=== PATIENT | male | born 1955 | race Caucasian/White ===

== ENCOUNTER 2018-03-15 08:12 | Emergency (ER) | payer OTHER ==
[2018-03-15 08:25] VITALS: BP 152/88
--- NOTE | 2018-03-15 10:23 | ED Physician Documentation ---
PD HPI LOWER EXT INJURY - Stated complaint Stated Complaint: LT LEG INJURY - Chief complaint Chief Complaint: Ext Problem - History obtained from History obtained from: Patient - History of Present Illness PD HPI LOW EXT INJURY LOCATION: Left, Upper leg Type of injury: Fall, Twist Where injury occurred: Park Timing - onset: Yesterday Timing - duration: Days (1) Timing - details: Abrupt onset, Still present Improved by: Rest, Immobilization Worsened by: Moving, Palpating Associated symptoms: No: Weakness, Numbness, Tingling, Swelling, Discolored Similar symptoms before: Diagnosis (pull of the hamstrings) Recently seen: Not recently seen - Additional information Additional information: 62-year-old male has a prior history of pulling both of his hamstrings playing baseball has developed a pain in the posterior aspect of his thigh on the left side after trying to adjust his boat and falling over the boats trailer tongue. He has severe pain in this area if he tries to straighten his leg he is able to be comfortable if he has his leg in a flexed position and if he is standing with the leg straight. If he tries to lift the leg he has significant pain over the hamstring. Review of Systems Constitutional: denies: Fever Eyes: denies: Decreased vision Ears: denies: Ear pain Nose: denies: Congestion Respiratory: denies: Cough GI: denies: Vomiting Musculoskeletal: reports: Extremity pain. denies: Neck pain, Back pain Neurologic: denies: Generalized weakness, Focal weakness, Numbness PD PAST MEDICAL HISTORY - Present Medications Home Medications: Ambulatory Orders Medication Instructions Recorded Confirmed HYDROcod/ACETAM 5/325 [[place] 5/325] 1 - 2 ea PO Q6H PRN #15 tablet 03/15/18 - Allergies Allergies/Adverse Reactions: Allergies Allergy/AdvReac Type Severity Reaction Status Date / Time Penicillins Allergy Unknown Verified 03/15/18 08:25 PD ED PE NORMAL - Vitals Vital signs reviewed: Yes (hypertensive ) - General General: Alert and oriented X 3, No acute distress, Well developed/nourished - HEENT HEENT: Atraumatic, PERRL - Neck Neck: Supple, no meningeal sign - Respiratory Respiratory: No respiratory distress - Derm Derm: Normal color, Warm and dry, No rash - Extremities Extremities: No deformity, No edema, Other (There is mid posterior thigh pain to palpation. There is pain to the ishial tuberosisty and pain is worse with extension and with flexion if standing. 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, No motor deficit, No sensory deficit, Normal speech Eye Opening: Spontaneous Motor: Obeys Commands Verbal: Oriented GCS Score: 15 - Psych Psych: Normal mood, Normal affect Results - Vitals Vitals: Vital Signs - 24 hr 03/15/18 08:22 Temperature 36.6 C Heart Rate 71 Respiratory 18 Rate Blood Pressure 152/88 H O2 Saturation 94 Oxygen O2 Source Room air - Rads (name of study) pelvis Radiology: Prelim report reviewed (Impression: Normal examination no demonstrated cause for the patient's symptoms.), EMP read indepedently, See rad report PD MEDICAL DECISION MAKING - ED course Complexity details: reviewed results, re-evaluated patient, considered differential, d/w patient ED course: 62-year-old male with a pull of his hamstrings on the left side does not have evidence of avulsion of bone from the ishial tuberosity. This appears most consistent with a pull of the hamstrings. - Sepsis Event Vital Signs: Vital Signs - 24 hr 03/15/18 08:22 Temperature 36.6 C Heart Rate 71 Respiratory 18 Rate Blood Pressure 152/88 H O2 Saturation 94 Oxygen O2 Source Room air Departure - Departure Disposition: 01 Home, Self Care Clinical Impression: Hamstring tear Condition: Stable Instructions: Hamstring Stretch Follow-Up: Russ Moss MD [Primary Care Provider] - Prescriptions: HYDROcod/ACETAM 5/325 [[place] 5/325] 1 - 2 ea PO Q6H PRN #15 tablet PRN Reason: Pain
[2018-03-15] MEDS ORDERED: DEXAMETHASONE 10 MG/ML VIAL PO STA (10:28)
--- NOTE | 2018-03-15 10:46 | XRAY Report ---
Procedure Date: 03/15/2018 Accession Number: [id number] / [id number] Procedure: XR - Pelvis 1 View CPT Code: FULL RESULT: EXAM: PELVIS RADIOGRAPHY, ONE VIEW EXAM DATE: 03/15/2018 10:37 AM. CLINICAL HISTORY: Pull of hamstring pain over the ischial tuberosity in a 62-year-old male. Posterior left hip pain. COMPARISON: None. TECHNIQUE: Single AP view of the pelvis and both hips performed. FINDINGS: Bones: Normal. No fracture or bone lesion. Joints: The visualized hip, pubis symphysis, and sacroiliac joints are preserved. No subluxation. Soft Tissues: Normal. No soft tissue swelling. IMPRESSION: Normal examination. No demonstrated cause for the patient's symptoms. [facility]IA ADDENDUM: 03/27/18 09:20 Additional CLINICAL HISTORY: Pelvic pain when weightbearing or hanging leg post injury.
== END 2018-03-15 11:04 | disposition home or self-care (01) ==
LOC: ED 08:12
DX: S76.312A Strain of muscle, fascia and tendon of the posterior muscle group at thigh level, left thigh, initial encounter (principal); X50.9XXA Other and unspecified overexertion or strenuous movements or postures, initial encounter; W01.0XXA Fall on same level from slipping, tripping and stumbling without subsequent striking against object, initial encounter
CPT/HCPCS: 72170; 99283